=== PATIENT | male | born 1945 | race Caucasian/White ===

== ENCOUNTER → 2016-09-02 | Outpatient (CLI) | payer BC ==
[2016-09-02 12:44] LABS: BASO % 0.2 %; BASO ABS # 0.01 K/uL (0-0.2); COMPLETE YES; EOS % 4.7 %; HEMATOCRIT 44.7 % (42-52); IG% 0.2 %; LYMPH % 35.5 %; LYMPH ABS # 2.12 K/uL (1.2-3.4); MEAN CELL VOLUME 92.2 fL (80-100); MEAN CORPUSCULAR HEMOGLOBIN 32.2 pg (25-34); MEAN CORPUSCULAR HGB CONC 34.9 g/dl (32-36); MONO % 8.2 %; NEUT % 51.2 %; PLATELET COUNT 202 K/uL (130-400); RED BLOOD COUNT 4.85 M/uL (4.7-6.1); WHITE BLOOD COUNT 5.98 K/uL (4.8-10.8)
[2016-09-02 14:16] LABS: ALKALINE PHOSPHATASE 73 U/L (45-117); ALT/SGPT 31 U/L (12-78); AST/SGOT 17 U/L (15-37); BLOOD UREA NITROGEN 9 mg/dl (7-18); BUN/CREATININE RATIO 10.8 (10-20); CALCIUM 9.1 mg/dl (8.5-10.1); CARBON DIOXIDE 25 mmol/L (21-32); CHLORIDE 107 mmol/L (98-107); CREATININE 0.87 mg/dl (0.60-1.40); GLUCOSE 170 mg/dl (70-99); POTASSIUM 4.2 mmol/L (3.5-5.1); SODIUM 141 mmol/L (136-145)
[2016-09-02 14:30] LABS: ALB/GLOB RATIO 1.1 (0.9-2); CHOLESTEROL 238 mg/dl (0-200); CHOLESTEROL/HDL RATIO 6.1; HDL CHOLESTEROL 39 mg/dl; LDL CHOLESTEROL CALCULATED 153 mg/dl; PROSTATE SPECIFIC ANTIGEN 0.432 ng/ml (0.000-4.000); TRIGLYCERIDES 230 mg/dl (0-150); VERY LOW DENSITY LIPOPROT CALC 46 mg/dl
== END | disposition home or self-care (01) ==
LOC: C.LABPBG 08:21
PROVIDERS: ATTEND Neuromusculoskeletal Medicine & OMM
DX: Z00.00 Encounter for general adult medical examination without abnormal findings (principal)

== ENCOUNTER → 2016-10-02 | Outpatient (CLI) | payer BC ==
[2016-10-03 05:33] LABS: ESTIMATED AVERAGE GLUCOSE 200 mg/dl; HA1C FLAG Normal (Normal)
== END | disposition home or self-care (01) ==
LOC: C.LABPBG 11:29
PROVIDERS: ATTEND Neuromusculoskeletal Medicine & OMM
DX: R73.9 Hyperglycemia, unspecified (principal)

== ENCOUNTER → 2017-02-09 | Outpatient (CLI) | payer BC ==
[2017-02-09 12:20] LABS: ESTIMATED AVERAGE GLUCOSE 137 mg/dl; HA1C FLAG Normal (Normal)
[2017-02-09 12:25] LABS: ALT/SGPT 17 U/L (12-78); AST/SGOT 13 U/L (15-37); BLOOD UREA NITROGEN 12 mg/dl (7-18); BUN/CREATININE RATIO 16.6 (10-20); CALCIUM 8.9 mg/dl (8.5-10.1); CARBON DIOXIDE 24 mmol/L (21-32); CHLORIDE 110 mmol/L (98-107); CREATININE 0.71 mg/dl (0.60-1.40); GLUCOSE 111 mg/dl (70-99); SODIUM 142 mmol/L (136-145)
[2017-02-09 12:27] LABS: ALB/GLOB RATIO 1.1 (0.9-2); ALKALINE PHOSPHATASE 61 U/L (45-117); CHOLESTEROL 218 mg/dl (0-200); CHOLESTEROL/HDL RATIO 6.8; HDL CHOLESTEROL 32 mg/dl; LDL CHOLESTEROL CALCULATED 136 mg/dl; TRIGLYCERIDES 249 mg/dl (0-150); VERY LOW DENSITY LIPOPROT CALC 50 mg/dl
== END | disposition home or self-care (01) ==
LOC: C.LABPBG 07:29
PROVIDERS: ATTEND Neuromusculoskeletal Medicine & OMM
DX: Z00.00 Encounter for general adult medical examination without abnormal findings (principal); E78.5 Hyperlipidemia, unspecified; E11.9 Type 2 diabetes mellitus without complications

== ENCOUNTER → 2017-08-06 | Outpatient (CLI) | payer BC ==
[2017-08-06 14:05] LABS: ALBUMIN 3.6 gm/dl (3.4-5.0); ALT/SGPT 22 U/L (12-78); AST/SGOT 15 U/L (15-37); BLOOD UREA NITROGEN 16 mg/dl (7-18); CARBON DIOXIDE 27 mmol/L (21-32); CHOLESTEROL 228 mg/dl (0-200); CREATININE 0.91 mg/dl (0.60-1.40); GLUCOSE 129 mg/dl (70-99); POTASSIUM 4.4 mmol/L (3.5-5.1); SODIUM 139 mmol/L (136-145)
[2017-08-06 14:15] LABS: ALKALINE PHOSPHATASE 55 U/L (45-117); LDL CHOLESTEROL CALCULATED 167 mg/dl; TOTAL PROTEIN 7.1 gm/dl (6.4-8.2)
[2017-08-07 07:30] LABS: HEMOGLOBIN A1C 6.4 % (4.5-5.6)
== END | disposition home or self-care (01) ==
LOC: C.LABPBG 09:09
PROVIDERS: ATTEND Family Medicine
DX: I10 Essential (primary) hypertension (principal); E78.5 Hyperlipidemia, unspecified; E11.9 Type 2 diabetes mellitus without complications

== ENCOUNTER 2020-06-12 16:12 | Observation (INO) ==
[~2020-06-12 16:12] MED LIST: SODIUM CHLORIDE 0.9% 1000ML 1,000 ML IV SCH
[2020-06-12] MEDS ORDERED: OPTIRAY 320 125ml IV ONE (16:27)
--- NOTE | 2020-06-12 16:32 | CT Scan Report ---
CT head/brain wo con CLINICAL HISTORY: 75 years-old Male with Stroke Like Symptoms. Acute strokelike symptoms TECHNIQUE: Multiple axial CT images of the head were obtained without contrast. A dose lowering tech nique was utilized adhering to the principles of ALARA. COMPARISON: None. FINDINGS: No acute intracranial hemorrhage, midline shift, intracranial mass, hydrocephalus, territorial ischem ia or abnormal extra-axial collection. Age-related involutional changes. The calvarium is intact. Tiny air-fluid level of the right sphenoid sinus. Mastoid air cells are chava ar. Unremarkable soft tissues. Prior bilateral lens replacement. IMPRESSION: No acute intracranial abnormality. ACT 112: Negative or not required by law. The above report was generated using voice recognition software. It may contain grammatical, syntax o r spelling errors. Electronically signed by: Jamie Smith M.D. 06/12/2020 4:31 PM
--- NOTE | 2020-06-12 16:50 | Emergency Department Note ---
Impression & Plan Amnesia, global, transient, Acute neck pain ED Provider Note NAME: MARGARET OTERO AGE: 75 SEX: M : 1945 ARRIVES VIA: Ambulance INFORMANT: Patient, the prehospital personnel, the patient's significant other ED PROVIDER(S): Emmanuel Campbell DO CHIEF COMPLAINT: Strokelike symptoms HPI: The patient is a 75-year-old male who presented to the emergency department for an evaluation of altered mental status. According to the patient's significant other they had gone shopping in the morning. When they returned from shopping the patient went outside to break up ice and shoveled the driveway. The patient was last seen well between 130 and 2:00 this afternoon. Apparently the patient came back inside and was very confused asking repetitive questions. The patient's significant other became concerned about a stroke and called 911. The patient arrived at the emergency department via ambulance. The patient self complains of headache which began while he was in the emergency department. He also complains of neck pain and back pain. The patient denies having any abdominal pain. He denies having any chest pain or difficulty breathing. The patient is confused and appears to be asking repetitive questions regarding why he is in the emergency department and what exactly happened. He has significant retrograde amnesia to the event and does not remember being at home today. The patient denies having any recent falls. The patient has not had similar symptoms in the past according to him and his significant other. The patient did have an episode of emesis prior to arrival. He was treated with Zofran by the prehospital personnel prior to arrival. ROS: See above HPI for pertinent positives & negatives. A total of 10 systems reviewed and were otherwise negative. PAST MEDICAL HISTORY: See Below PAST SURGICAL HISTORY: See Below FAMILY HISTORY: See Below SOCIAL HISTORY: See Below HOME MEDICATIONS: See Below ALLERGIES: See Below VITALS: See Below PHYSICAL EXAMINATION: GENERAL: Patient is awake alert in no acute distress patient is resting comfortably and showing no signs of anxiety EYES: The conjunctivae are clear. The pupils are round and reactive. EARS, NOSE, MOUTH AND THROAT: The nose is without any evidence of any deformity. NECK: The neck is nontender and supple. RESPIRATORY: Normal respiratory effort is noted there is no evidence of wheezing rhonchi or rales CARDIOVASCULAR: Regular rate and rhythm noted there no murmurs rubs or gallops normal S1 normal S2. GASTROINTESTINAL: The abdomen is soft. Abdomen is nontender. BACK: No midline tenderness was elicited. There is tenderness over the right parascapular region as well as the right trapezius. Range of motion appears intact. MUSCULOSKELETAL/EXTREMITIES: There is no evidence of gross deformity full range of motion is noted in the hips and shoulders. SKIN: There is no obvious evidence of any rash. There are no petechiae, pallor or cyanosis noted. NEUROLOGIC: Patient is awake alert and oriented to person place but not time or situation. The patient continues to ask repetitive questioning about why he is in the emergency department. Patellar tendon reflexes are 2+ bilaterally. There is no drift or facial droop noted. Patient is able to hold each leg off the bed for greater than 5 seconds. MEDICAL DECISION MAKING: The patient is a 75-year-old male who presented to the emergency department for confusion. The patient appears to have some degree of amnesia. He was made a stroke alert prior to arrival. The patient has no focal neurologic deficits but did have an NIH score of 2 because of his confusion. His confusion appears to be more consistent with an amnesia. He was shoveling his driveway and may have been exerting himself. It is also unclear if the patient suffered a fall and may be presenting with concussion symptoms. I discussed the patient's laboratory and radiographic studies with him. He was reevaluated multiple times. The patient continues to have a significant degree of amnesia to the event. For this reason I discussed his case with the on-call [facility] hospitalist group. The patient may require further evaluation for transient global amnesia. The patient was agreeable to evaluation. Triage Nursing notes reviewed. Prior medical records reviewed Vital Signs: reviewed and remarkable for elevated blood pressure. Differential diagnosis: Infection, dehydration, metabolic abnormality, hypo/hyperglycemia, electrolyte disturbance, anemia, hypoxia, cardiac sources, intracerebral event, toxicologic, neurologic, as well as other pathologies. ER treatment provided: See below Diagnostics interpreted by me: ECG: EKG was obtained in the emergency department. My interpretation is normal sinus rhythm at 68 bpm. There was no ectopy. High lateral Q waves and T wave flattening in the inferior leads were noted. There is no previous EKG available for comparison. Cardiac Monitoring: An order was placed for continuous cardiac monitoring. The monitor shows a rate of 65 bpm with sinus rhythm. Laboratory studies: As stated above and show below. Imaging studies: See below Consultation(s): 1640: I discussed this case with the [place] telestroke neurologist, Dr. Rosenberg. I discussed this case with Dr. Rodriguez who is on-call for the [facility] hospitalist group. Past Med/Surg History Medical History Benign essential hypertension GERD (gastroesophageal reflux disease) MILD, DIET CONTROLLED History of basal cell carcinoma (BCC) of skin (11/2019) Hyperlipidemia Nausea and vomiting after administration of anesthetic agent T2DM (type 2 diabetes mellitus) Surgical History History of cholecystectomy (1993) History of right cataract surgery History of tonsillectomy History of total knee replacement (05/2012) LEFT S/P cataract extraction (09/26/18) L eye S/P left knee arthroscopy (2018) Family History Aunt Ovarian cancer Breast cancer Mother Hypertension Denies family history of Prostate cancer Myocardial infarction Colorectal cancer Social History Smoking Status: Never smoker Cigarettes Per Day: QUIT 30 YEARS AGO, HX OF USE X30 YEARS; Second Hand Exposure: No; Hx Alcohol Use: No Hx Substance Use: No Preferred Language: Kazakh Communication Ability: Effective Switchman Required: No Beliefs That Will Affect Care: None Current Living Situation: Spouse current occupational status: retired Feels Safe at Home: Yes caffeine: Yes during the past year weight has: remained stable Dental Care, Regularly: Yes Physical Activity Frequency: Daily Seatbelt Use: other Sunscreen Use: No Assistive Devices: None Allergies Allergies Allergy/AdvReac Type Severity Reaction Status Date / Time No Known Allergies Allergy Verified 06/12/20 16:26 Home Meds Home Medications Medication Instructions Recorded Confirmed ibuprofen 200 mg capsule 200 mg PO DIRECTED PRN cap 02/01/19 06/12/20 Previous Rx's Medication Instructions Recorded metformin 500 mg tablet 500 mg PO BID #180 tab 09/07/19 lisinopril 10 mg tablet 10 mg PO DAILY #90 tab 05/29/20 Results & Data (ED) Vital Signs Vital Signs - 24 hr 06/12/20 16:26 06/12/20 16:33 06/12/20 16:40 Temperature 36.5 C Temperature Source Oral Pulse Rate 71 71 65 Pulse Rate [Apical] Pulse Rate from SpO2 Sensor 70 63 Respiratory Rate 19 23 17 Respiratory Effort / Characteristics Non-Labored Respiratory Depth Normal Blood Pressure 160/78 H 160/78 H Blood Pressure [Left Arm] Blood Pressure Mean 105 105 Blood Pressure Mean [Left Arm] Blood Pressure Position Sitting Pulse Oximetry 97 97 98 Oxygen Delivery Method Room Air Sepsis Recent Fever Within 48 Hours No Sepsis New/Unexplained Change in Mental Status No Sepsis Action Taken by Nursing No Action Required 06/12/20 16:50 06/12/20 17:00 06/12/20 17:10 Temperature Temperature Source Pulse Rate 61 59 L 61 Pulse Rate [Apical] Pulse Rate from SpO2 Sensor 62 59 L 62 Respiratory Rate 20 14 23 Respiratory Effort / Characteristics Respiratory Depth Blood Pressure 146/73 H Blood Pressure [Left Arm] Blood Pressure Mean 97 Blood Pressure Mean [Left Arm] Blood Pressure Position Pulse Oximetry 98 96 95 Oxygen Delivery Method Sepsis Recent Fever Within 48 Hours Sepsis New/Unexplained Change in Mental Status Sepsis Action Taken by Nursing 06/12/20 17:20 06/12/20 17:36 Temperature Temperature Source Pulse Rate 57 L Pulse Rate [Apical] 60 Pulse Rate from SpO2 Sensor 56 L Respiratory Rate 15 Respiratory Effort / Characteristics Respiratory Depth Blood Pressure Blood Pressure [Left Arm] 156/75 H Blood Pressure Mean Blood Pressure Mean [Left Arm] 102 Blood Pressure Position Pulse Oximetry 97 97 Oxygen Delivery Method Room Air Sepsis Recent Fever Within 48 Hours Sepsis New/Unexplained Change in Mental Status Sepsis Action Taken by [facility] Medications Current Medication List: was personally reviewed by me Laboratory Data Attestation: I reviewed the patient's lab results. Result diagrams: 06/12/20 16:37 06/12/20 16:37 Lab Results 06/12/20 06/12/20 06/12/20 Range/Units 16:37 16:37 16:37 WBC 12.49 H (4.8-10.8) K/uL RBC 4.30 L (4.7-6.1) M/uL Hgb 13.6 L (14.0-18.0) g/dL Hct 39.7 L (42-52) % MCV 92.3 (80-100) fL MCH 31.6 (25-34) pg MCHC 34.3 (32-36) g/dL RDW Std Deviation 47.5 H (36.4-46.3) fL RDW Coeff of Jude 14.1 (11.5-14.5) % Plt Count 216 (130-400) K/uL MPV 11.0 H (7.4-10.4) fL Immature Gran % (Auto) 0.6 % Neut % (Auto) 78.4 % Lymph % (Auto) 13.1 % [place] % (Auto) 6.9 % Eos % (Auto) 0.9 % Baso % (Auto) 0.1 % Neut # (Auto) 9.81 H (1.4-6.5) K/uL Lymph # (Auto) 1.63 (1.2-3.4) K/uL [place] # (Auto) 0.86 H (0.11-0.59) K/uL Eos # (Auto) 0.11 (0-0.5) K/uL Baso # (Auto) 0.01 (0-0.2) K/uL Immature Gran # (Auto) 0.07 H (0.00-0.02) K/uL PT 11.7 (9.0-12.0) Seconds INR 1.1 (0.9-1.1) APTT 26.3 (21.0-31.0) Seconds PTT Ratio 0.9 Sodium 138 (136-145) mmol/L Potassium 4.1 (3.5-5.1) mmol/L Chloride 106 (98-107) mmol/L Carbon Dioxide 23 (21-32) mmol/L Anion Gap 8.0 (3-11) BUN 14 (7-18) mg/dl Creatinine 1.09 (0.6-1.4) mg/dl Est Cr Clr Drug Dosing Not Reportable Est GFR ( Amer) 77.1 Est GFR (Non-Af Amer) 66.5 BUN/Creatinine Ratio 12.8 (10-20) Glucose 158 H (70-99) mg/dl Calcium 9.3 (8.5-10.1) mg/dl Magnesium 1.5 L (1.8-2.4) mg/dl Total Bilirubin 0.5 (0.2-1) mg/dl AST 8 L (15-37) U/L ALT 18 (12-78) U/L Alkaline Phosphatase 56 (45-117) U/L Troponin I < 0.015 (0-0.045) ng/ml Total Protein 6.6 (6.4-8.2) gm/dl Albumin 3.4 (3.4-5.0) gm/dl Globulin 3.2 (2.5-4.0) gm/dl Albumin/Globulin Ratio 1.1 (0.9-2) COVID-19 Eval Order SARS-CoV-2, RNA, NAAT (NEGATIVE) 06/12/20 06/12/20 Range/Units 16:43 16:43 WBC (4.8-10.8) K/uL RBC (4.7-6.1) M/uL Hgb (14.0-18.0) g/dL Hct (42-52) % MCV (80-100) fL MCH (25-34) pg MCHC (32-36) g/dL RDW Std Deviation (36.4-46.3) fL RDW Coeff of Jude (11.5-14.5) % Plt Count (130-400) K/uL MPV (7.4-10.4) fL Immature Gran % (Auto) % Neut % (Auto) % Lymph % (Auto) % [place] % (Auto) % Eos % (Auto) % Baso % (Auto) % Neut # (Auto) (1.4-6.5) K/uL Lymph # (Auto) (1.2-3.4) K/uL [place] # (Auto) (0.11-0.59) K/uL Eos # (Auto) (0-0.5) K/uL Baso # (Auto) (0-0.2) K/uL Immature Gran # (Auto) (0.00-0.02) K/uL PT (9.0-12.0) Seconds INR (0.9-1.1) APTT (21.0-31.0) Seconds PTT Ratio Sodium (136-145) mmol/L Potassium (3.5-5.1) mmol/L Chloride (98-107) mmol/L Carbon Dioxide (21-32) mmol/L Anion Gap (3-11) BUN (7-18) mg/dl Creatinine (0.6-1.4) mg/dl Est Cr Clr Drug Dosing Est GFR ( Amer) Est GFR (Non-Af Amer) BUN/Creatinine Ratio (10-20) Glucose (70-99) mg/dl Calcium (8.5-10.1) mg/dl Magnesium (1.8-2.4) mg/dl Total Bilirubin (0.2-1) mg/dl AST (15-37) U/L ALT (12-78) U/L Alkaline Phosphatase (45-117) U/L Troponin I (0-0.045) ng/ml Total Protein (6.4-8.2) gm/dl Albumin (3.4-5.0) gm/dl Globulin (2.5-4.0) gm/dl Albumin/Globulin Ratio (0.9-2) COVID-19 Eval Order Covid19 [facility] SARS-CoV-2, RNA, NAAT NEGATIVE (NEGATIVE) Administered Medications Sodium Chloride (Nss 1000ml) 1,000 mls @ 50 mls/hr IV .Q20H ARLYN Stop: 07/12/20 15:59 Last Admin: 06/12/20 20:34 Dose: 50 mls/hr Documented by: [id number] Miscellaneous (Patient's Weight Needed) 1 ea N/A Q2H ARLYN Stop: 07/12/20 20:29 Last Admin: 06/12/20 21:34 Dose: 1 ea Documented by: [id number] Ondansetron HCl (Ondansetron Inj 2 Mg/Ml 2 Ml Vial) 4 mg IV Q4H PRN PRN Reason: Nausea Stop: 07/12/20 20:28 Last Admin: 06/12/20 21:04 Dose: 4 mg Documented by: [id number] Discontinued Medications Aspirin (Aspirin 81 Mg Chew) 324 mg PO NOW ONE Stop: 06/12/20 19:33 Last Admin: 06/12/20 20:36 Dose: 324 mg Documented by: [id number] Gadobutrol (Gadobutrol 65ml Vial) 9.5 ml IV ONCE ONE Stop: 06/12/20 22:06 Last Admin: 06/12/20 22:06 Dose: 9.5 ml Documented by: [id number] Magnesium Sulfate/Dextrose (Magnesium Sulfate / D5w) 1 gm in 100 mls @ 100 mls/hr IV Q1H ARLYN Stop: 06/12/20 19:09 Last Infusion: 06/12/20 20:08 Dose: 0 mls/hr Documented by: [id number] Admin: 06/12/20 18:34 Dose: 100 mls/hr Documented by: [id number] Infusion: 06/12/20 18:34 Dose: 0 mls/hr Documented by: [id number] Admin: 06/12/20 17:33 Dose: 100 mls/hr Documented by: [id number] Ioversol (Optiray 320 125ml) 118 ml IV ONCE ONE Stop: 06/12/20 16:28 Last Admin: 06/12/20 16:28 Dose: 118 ml Documented by: [id number] Lorazepam (Lorazepam 0.5 Mg Tab) 0.5 mg PO NOW STA Stop: 06/12/20 20:29 Last Admin: 06/12/20 20:37 Dose: 0.5 mg Documented by: [id number] Imaging Data Radiologist's Impression: [facility], [id number] CT Scan Report Patient: MARGARET OTERO Date: 06/12/20MR#: [id number]: [address]Acct ID:[id number]: [address] [facility] Zip: [place], [place] [address]Hzw: 75Location: EDSex: MRoom/Bed:Att Phy:Diagnosis: CONFUSION, BACK PAIN, STROKE ALERTPri Phy: Celina Ramos, DOService Date: 06/12/20Fam Phy:Interpreting Phy: Jeet Pastor MDAdmit Phy: Ordering Phy: Emmanuel Campbell DO cc: ~ CT ANGIOGRAM OF THE BRAIN; CT ANGIOGRAM OF THE NECK CLINICAL HISTORY: Change in mental status. Stroke like symptoms. COMPARISON STUDY: Unenhanced CT of the brain performed concurrently on 06/12/2020. TECHNIQUE: Following the IV administration of 118 of Optiray 320, CT angiogram of the head and neck was performed from the aortic arch to the vertex. Images are reviewed in the axial, sagittal, and coronal planes. 3-D MIPS images are created and assessed. IV contrast was administered without complication. All measurements were calculated based on NASCET criteria. A dose lowering technique was utilized adhering to the principles of ALARA. CT DOSE: 1481.94 mGy.cm FINDINGS: Brain parenchyma: There is age-related involutional change noting mild subcortical and periventricular microangiopathic disease. There is no hemorrhag e, mass effect, or evidence of acute territorial ischemia by CT criteria. There is no evidence of enhancing mass lesion on the angiogram phase images. The ventricles, sulci, and cisterns are prominent secondary to involutional change. Ford-white matter differentiation is preserved. No extra-axial fluid collection is seen. Thoracic aorta: Visualized portions of the thoracic aorta are normal in caliber. The aortic arch demonstrates standard 3-vessel anatomy. Right carotid arterial system: The right common carotid artery is widely patent, as are the right internal and external carotid arteries. Left carotid arterial system: The left common carotid artery is widely patent, as are the left internal and external carotid arteries. Mild plaque is seen in the carotid bulb. Vertebral arteries: The vertebral arteries are widely patent bilaterally and codominant in the neck. Subclavian arteries: Widely patent bilaterally. Intracranial vasculature: There is atherosclerotic calcification of the cavernous carotid and vertebral arteries. The internal carotid arteries are patent at the skull base, as are the anterior and middle cerebral arteries bilaterally. The vertebrobasilar system and posterior cerebral arteries are widely patent. The left vertebral artery is dominant. There is no aneurysm, high-grade stenosis, or focal vessel cut off seen throughout the intracranial circulation. Jugular veins: Patent bilaterally. Dural sinuses: Patent. Lung apices: Partially visualized upper lobe lung parenchyma appears clear. Soft tissues: The visualized pharyngeal soft tissues are normal in appearance noting angiographic phase technique. The oropharyngeal airway appears widely patent. There is a 6.5 x 5.5 x 4.5 cm mass of the left lobe of the thyroid gland. This causes mass effect and rightward deviation of the trachea. The salivary glands are normal in appearance. No cervical lymphadenopathy is seen. Skeletal structures: The skeletal structures are osteopenic. The calvarium appears intact. The cervical spine is maintained noting multilevel spondylosis. No lytic or blastic lesion is seen. Orbits: The bony orbits are intact. Orbital contents are normal as visualized noting bilateral ocular lens implants. Sinuses and mastoids: There is mild mucosal thickening and secretions within the right sphenoid sinus. Trace because of thickening seen within the maxillary antra. The mastoid air cells are well pneumatized. IMPRESSION: 1. There is no hemorrhage, mass effect, or evidence of acute territorial ischemia by CT criteria noting angiographic phase technique. 2. Unremarkable CT angiogram of the brain. 3. Unremarkable CT head from the neck. 4. There is a 6.5 cm mass of the left lobe of the thyroid gland. Follow-up with a nonemergent thyroid ultrasound is recommended for further assessment. ACT 112: Negative or not required by law. Electronically signed by: Jeet Pastor M.D. 06/12/2020 4:57 PM Dictated: 06/12/20 1638Transcribed: 06/12/20 1648 [facility], [id number] CT Scan Report Patient: MARGARET OTERO Date: 06/12/20MR#: [id number]: [address]Acct ID:[id number]: Date: 1945[facility] Zip: [place], [place] [address]Gps: 75Location: EDSex: MRoom/Bed:Att Phy:Diagnosis: CONFUSION, BACK PAIN, STROKE ALERTPri Phy: Celina Ramos, DOService Date: 06/12/20Fam Phy:Interpreting Phy: Kenny SmithAdmit Phy: Ordering Phy: Emmanuel Campbell DO cc: ~ CT head/brain wo con CLINICAL HISTORY: 75 years-old Male with Stroke Like Symptoms. Acute strokelike symptoms TECHNIQUE: Multiple axial CT images of the head were obtained without contrast. A dose lowering technique was utilized adhering to the principles of ALARA. COMPARISON: None. FINDINGS: No acute intracranial hemorrhage, midline shift, intracranial mass, hydrocephalus, territorial ischemia or abnormal extra-axial collection. Age- related involutional changes. The calvarium is intact. Tiny air-fluid level of the right sphenoid sinus. Mastoid air cells are clear. Unremarkable soft tissues. Prior bilateral lens replacement. IMPRESSION: No acute intracranial abnormality. ACT 112: Negative or not required by law. The above report was generated using voice recognition software. It may contain grammatical, syntax or spelling errors. Electronically signed by: Jamie Smith M.D. 06/12/2020 4:31 PM Dictated: 06/12/201628Transcribed: 06/12/201628 Patient: MARGARET OTERO Date: 06/12/20#: [id number]: [address]Acct ID:[id number]: [address] Zip: [place], [place] [address]Ert: 75Location: EDSex: MRoom/Bed:Att Phy:Diagnosis: CONFUSION, BACK PAIN, STROKE ALERTPri Phy: Celina Ramos, DOService Date: 06/12/20Fam Phy:Interpreting Phy: Kenny SmithAdmgunner Phy: Ordering Phy: Emmanuel Campbell DO cc: ~ CT angio chest PE protocol HISTORY: 75 years-old Male with PE. Acute confusion with strokelike symptoms and acute shortness of breath TECHNIQUE: Multiple CTA images of the chest were obtained after the intravenous administration of 118 ml Optiray 320. Coronal and sagittal MIPS were obtained from the axial data set and were submitted for review. All measurements were obtained according to NASCET criteria. A dose lowering technique was utilized adhering to the principles of ALARA. COMPARISON: None. FINDINGS: CTA: The heart is upper limits of normal in size. No pericardial effusion. No thoracic aortic aneurysm or dissection. Patency of the imaged great vessels. Pulmonary artery is opacified to the level the subsegmental branches and demonstrates no filling defects to suggest thromboembolic disease. CT CHEST: Thyroid goiter, with enlargement of the left thyroid lobe. No adenopathy. No pneumothorax, pleural effusion or overt pulmonary edema. Mild bilateral bronchial wall thickening. Mild bibasilar groundglass densities suggest atelectasis. There are no suspicious pulmonary nodules or masses. No airspace consolidation typical for pneumonia. Central airways are patent. Tiny hiatal hernia. Cholecystectomy. Unremarkable soft tissues. Degenerative changes of the shoulders and spine. No acute fracture. IMPRESSION: 1. Unremarkable CTA of the chest without evidence of pulmonary emboli. 2. Mild bibasilar atelectasis without pleural effusion, adenopathy or airspace consolidation to suggest pneumonia. 3. Thyroid goiter. ACT 112: Negative or not required by law. The above report was generated using voice recognition software. It may contain grammatical, syntax or spelling errors. Electronically signed by: Jamie Smith M.D. 06/12/2020 4:50 PM Dictated: 06/12/20 1631Transcribed: 06/12/20 1631 Blood Pressure Blood Pressure Findings: Elevated blood pressure Blood Pressure Disposition: further management by hospitalist Discharge Plan Visit Data Chief Complaint: Stroke Alert Stated Complaint: CONFUSION, BACK PAIN, STROKE ALERT ED Provider: Emmanuel Campbell Discharge Problem: Amnesia, global, transient, Acute neck pain Patient Disposition: Admitted As Inpatient Condition: Good Discharge Instructions Interventions: ED Discharge Assessment Last Done: 06/12/20 19:07
[2020-06-12 16:51] LABS: Basophils # (auto) 0.01 K/uL (0-0.2); Basophils % (auto) 0.1 %; Eosinophils # (auto) 0.11 K/uL (0-0.5); Eosinophils % (auto) 0.9 %; Hematocrit (blood only) 39.7 % (42-52); Hemoglobin 13.6 g/dL (14.0-18.0); Immature Granulocytes # (auto) 0.07 K/uL (0.00-0.02); Immature Granulocytes % (auto) 0.6 %; Lymphocytes # (auto) 1.63 K/uL (1.2-3.4); Lymphocytes % (auto) 13.1 %; Mean Corpuscular Hemoglobin 31.6 pg (25-34); Mean Corpuscular Hgb Conc 34.3 g/dL (32-36); Mean Corpuscular Volume 92.3 fL (80-100); Monocytes # (auto) 0.86 K/uL (0.11-0.59); Monocytes % (auto) 6.9 %; Neutrophils # (auto) 9.81 K/uL (1.4-6.5); Neutrophils % (auto) 78.4 %; Platelet Count 216 K/uL (130-400); RDW Coefficient of Variation 14.1 % (11.5-14.5); RDW Standard Deviation 47.5 fL (36.4-46.3); White Blood Count 12.49 K/uL (4.8-10.8)
--- NOTE | 2020-06-12 16:52 | CT Scan Report ---
CT angio chest PE protocol HISTORY: 75 years-old Male with PE. Acute confusion with strokelike symptoms and acute shortness of breath TECHNIQUE: Multiple CTA images of the chest were obtained after the intravenous administration of 118 ml Optiray 320. Coronal and sagittal MIPS were obtained from the axial data set and were submitted for review. All measurements were obtained according to NASCET criteria. A dose lowering technique w as utilized adhering to the principles of ALARA. COMPARISON: None. FINDINGS: CTA: The heart is upper limits of normal in size. No pericardial effusion. No thoracic aortic aneurysm or dissection. Patency of the imaged great vessels. Pulmonary artery is opacified to the level the subse gmental branches and demonstrates no filling defects to suggest thromboembolic disease. CT CHEST: Thyroid goiter, with enlargement of the left thyroid lobe. No adenopathy. No pneumothorax, pleural ef fusion or overt pulmonary edema. Mild bilateral bronchial wall thickening. Mild bibasilar groundglass densities suggest atelectasis. There are no suspicious pulmonary nodules or masses. No airspace cons olidation typical for pneumonia. Central airways are patent. Tiny hiatal hernia. Cholecystectomy. Unremarkable soft tissues. Degenerative changes of the shoulders and spine. No acute fracture. IMPRESSION: 1. Unremarkable CTA of the chest without evidence of pulmonary emboli. 2. Mild bibasilar atelectasis without pleural effusion, adenopathy or airspace consolidation to sugge st pneumonia. 3. Thyroid goiter. ACT 112: Negative or not required by law. The above report was generated using voice recognition software. It may contain grammatical, syntax o r spelling errors. Electronically signed by: Jamie Smith M.D. 06/12/2020 4:50 PM
--- NOTE | 2020-06-12 16:58 | CT Scan Report ---
CT ANGIOGRAM OF THE BRAIN; CT ANGIOGRAM OF THE NECK CLINICAL HISTORY: Change in mental status. Stroke like symptoms. COMPARISON STUDY: Unenhanced CT of the brain performed concurrently on 06/12/2020. TECHNIQUE: Following the IV administration of 118 of Optiray 320, CT angiogram of the head and neck w as performed from the aortic arch to the vertex. Images are reviewed in the axial, sagittal, and eva nal planes. 3-D MIPS images are created and assessed. IV contrast was administered without complicati on. All measurements were calculated based on NASCET criteria. A dose lowering technique was utilize d adhering to the principles of ALARA. CT DOSE: 1481.94 mGy.cm FINDINGS: Brain parenchyma: There is age-related involutional change noting mild subcortical and periventricula r microangiopathic disease. There is no hemorrhage, mass effect, or evidence of acute territorial isc hemia by CT criteria. There is no evidence of enhancing mass lesion on the angiogram phase images. Th e ventricles, sulci, and cisterns are prominent secondary to involutional change. Ford-white matter d ifferentiation is preserved. No extra-axial fluid collection is seen. Thoracic aorta: Visualized portions of the thoracic aorta are normal in caliber. The aortic arch demo nstrates standard 3-vessel anatomy. Right carotid arterial system: The right common carotid artery is widely patent, as are the right int ernal and external carotid arteries. Left carotid arterial system: The left common carotid artery is widely patent, as are the left internist medical doctor md al and external carotid arteries. Mild plaque is seen in the carotid bulb. Vertebral arteries: The vertebral arteries are widely patent bilaterally and codominant in the neck. Subclavian arteries: Widely patent bilaterally. Intracranial vasculature: There is atherosclerotic calcification of the cavernous carotid and vertebr al arteries. The internal carotid arteries are patent at the skull base, as are the anterior and midd le cerebral arteries bilaterally. The vertebrobasilar system and posterior cerebral arteries are wide ly patent. The left vertebral artery is dominant. There is no aneurysm, high-grade stenosis, or focal vessel cut off seen throughout the intracranial circulation. Jugular veins: Patent bilaterally. Dural sinuses: Patent. Lung apices: Partially visualized upper lobe lung parenchyma appears clear. Soft tissues: The visualized pharyngeal soft tissues are normal in appearance noting angiographic pha se technique. The oropharyngeal airway appears widely patent. There is a 6.5 x 5.5 x 4.5 cm mass of t he left lobe of the thyroid gland. This causes mass effect and rightward deviation of the trachea. Th e salivary glands are normal in appearance. No cervical lymphadenopathy is seen. Skeletal structures: The skeletal structures are osteopenic. The calvarium appears intact. The cervic al spine is maintained noting multilevel spondylosis. No lytic or blastic lesion is seen. Orbits: The bony orbits are intact. Orbital contents are normal as visualized noting bilateral ocular lens implants. Sinuses and mastoids: There is mild mucosal thickening and secretions within the right sphenoid sinus . Trace because of thickening seen within the maxillary antra. The mastoid air cells are well pneumat ized. IMPRESSION: 1. There is no hemorrhage, mass effect, or evidence of acute territorial ischemia by CT criteria noti ng angiographic phase technique. 2. Unremarkable CT angiogram of the brain. 3. Unremarkable CT head from the neck. 4. There is a 6.5 cm mass of the left lobe of the thyroid gland. Follow-up with a nonemergent thyroid ultrasound is recommended for further assessment. ACT 112: Negative or not required by law. Electronically signed by: Jeet Pastor M.D. 06/12/2020 4:57 PM
[2020-06-12 17:02] LABS: INR 1.1 (0.9-1.1); Partial Thromboplastin Ratio 0.9; Partial Thromboplastin Time 26.3 Seconds (21.0-31.0); Prothrombin Time 11.7 Seconds (9.0-12.0)
[2020-06-12 17:07] LABS: Alanine Aminotransferase 18 U/L (12-78); Albumin Level 3.4 gm/dl (3.4-5.0); Aspartate Aminotransferase 8 U/L (15-37); BUN Creatinine Ratio 12.8 (10-20); Blood Urea Nitrogen 14 mg/dl (7-18); Calcium 9.3 mg/dl (8.5-10.1); Carbon Dioxide 23 mmol/L (21-32); Chloride 106 mmol/L (98-107); Est GFR (African American) 77.1; Est GFR (Non-African American) 66.5; Glucose 158 mg/dl (70-99); Magnesium 1.5 mg/dl (1.8-2.4); Potassium 4.1 mmol/L (3.5-5.1); Sodium 138 mmol/L (136-145)
[2020-06-12 17:12] LABS: Albumin Globulin Ratio 1.1 (0.9-2); Alkaline Phosphatase 56 U/L (45-117); Bilirubin,Total 0.5 mg/dl (0.2-1); Globulin 3.2 gm/dl (2.5-4.0); Total Protein 6.6 gm/dl (6.4-8.2); Troponin I < 0.015 ng/ml (0-0.045)
[2020-06-12] MEDS: MAGNESIUM SULFATE / D5W 1 GM/100 ML BAG IV SCH ×2 (17:33→18:34)
--- NOTE | 2020-06-12 19:00 | History & Physical Report ---
Date of Service June 12, 2020 Assessment & Plan (1) Amnesia memory loss: Transient global amnesia vs. lacunar/basilar stroke vs seizure - unspecified cause at this time- electrolytes normal, pending toxicology screen - CT/CTA - MRI ordered - as patient has not had this happen to him before makes seizure less likely. - Patient has no history or complaints of migraines - Maintain frequent neuro assessment tonight - telemetry to r/o dysrhythmia - Lipid panel in the morning - A1C in morning - Hold antihypertensives (2) Hyperlipidemia: lipid panel in the morning. Patient previously declined statin therapy by his PCP. - Should have another educated discussion with patient prior to discharge and initiate statin therapy if indicated. (3) T2DM (type 2 diabetes mellitus): Metformin on hold - BG q6h cover if >200 - no acute concerns (4) Benign essential hypertension: Resume in morning if maintains maps and no change in neurological status (5) Thyroid nodule greater than or equal to 1 cm in diameter incidentally noted on imaging study: There is a 6.5 cm mass of the left lobe of the thyroid gland. Follow-up with a nonemergent thyroid ultrasound is recommended for further assessment. - This was noted on CTA of the neck. - TSH and T4 pending - no pain with palpation History of Present Illness Primary Care Provider: Celina Ramos, DO 75 YOM with significant medical history of HTN, DM II, HLD (patient declined statin therapy), neck pain/back pain. Was brought to the emergency room today via EMS after called 911 secondary to patient confusion and repetitive speech after he went outside to [facility]. The patient arrived to the EMD and underwent stroke alert protocols. The patient was last known well at 1330 today per ER report and was deemed not a tPA candidate secondary to feeling that this is transient amnesia. The patient does not recall any events from today or awakening this morning. The last person that he remembers seeing today was his nurse who just left the room when I entered. He is unaware of where he is and how he got here. The amnesia is associated with a frontal headache that is right in the center of his forehead and is mild at 2-3/10. He denies any association with other pain, nausea, vomiting, or vertiginous symptoms. Reportedly had one episode of vomitus in the ambulance. Patient underwent CT/CTA of head and neck while in the EMD, NIHSS 2 on my evaluation. MRI ordered. Patient will be admitted for observation for 24 hours, telemetry for dysrhythmia monitoring and frequent neurological assessment. Allergies Allergy/AdvReac Type Severity Reaction Status Date / Time No Known Allergies Allergy Verified 06/12/20 16:26 Home Medications Medication Instructions Recorded Confirmed Type ibuprofen 200 mg capsule 200 mg PO DIRECTED PRN cap 02/01/19 06/12/20 History metformin 500 mg tablet 500 mg PO BID #180 tab 09/07/19 06/12/20 Rx lisinopril 10 mg tablet 10 mg PO DAILY #90 tab 05/29/20 06/12/20 Rx Past Med/Surg History Medical History Benign essential hypertension GERD (gastroesophageal reflux disease) MILD, DIET CONTROLLED History of basal cell carcinoma (BCC) of skin (11/2019) Hyperlipidemia Nausea and vomiting after administration of anesthetic agent T2DM (type 2 diabetes mellitus) Surgical History History of cholecystectomy (1993) History of right cataract surgery History of tonsillectomy History of total knee replacement (05/2012) LEFT S/P cataract extraction (09/26/18) L eye S/P left knee arthroscopy (2018) Family History Aunt Ovarian cancer Breast cancer Mother Hypertension Denies family history of Prostate cancer Myocardial infarction Colorectal cancer Social History Smoking Status: Unknown if ever smoked Cigarettes Per Day: QUIT 30 YEARS AGO, HX OF USE X30 YEARS; Second Hand Exposure: No; Hx Alcohol Use: No Hx Substance Use: No Preferred Language: Northern Irish Communication Ability: Effective Order Processor Required: No Beliefs That Will Affect Care: None Current Living Situation: Spouse current occupational status: retired Feels Safe at Home: Yes caffeine: Yes during the past year weight has: remained stable Dental Care, Regularly: Yes Physical Activity Frequency: Daily Seatbelt Use: other Sunscreen Use: No Assistive Devices: Glasses Review of Systems Review of Systems: REVIEW OF SYSTEMS: Constitutional: No fever, sweats or chills Eyes: No diplopia, no worsening or blurred vision ENT: normal hearing, no trouble swallowing Respiratory: No cough, sputum, dyspnea at rest or on exertion Cardiovascular: No chest pain, tightness or palpitations Abdomen: (+) vomiting x1, No pain, nausea, diarrhea or constipation Musculoskeletal: No joint pain, calf pain, swelling Neurologic: (+) memory loss, headache, No weakness, numbness/tingling, or balance problems Psychiatric: No anxiety or depression Skin: No rash or itch Physical Exam Physical Exam: PHYSICAL EXAM: General: awake, alert, no apparent distress Head: Normocephalic, atraumatic ENT: PERRL, EOMI, no pharyngeal exudate, mucous membranes moist Neuro: AAO x 1 (person), NIHSS 2; speech clear and appropriate, neck midline non-tender; strength intact bilaterally 5/5, sensation intact and equal all extremities, no pronator drift, no ataxia, no dysarthria difficulty with concrete thought processes. Writing normal as well as reading. No recolection of the past week or day, no nystagmus. Chest: equal rise and fall of the chest, no accessory muscle use, no heaves or thirlls, Clear to auscultation, on room air, Cardiac: Regular rate and rhythm, telelmetry reviewed, skin warm dry, cap refill <3 seconds, peripheral pusles +2 no JVD, no murmur, no JVD, no edema GI: NABS x 4 quadrants, soft, nontender to palpation, no rebound, guarding or tenderness : Spontaneously voiding, no pain, no CVA tenderness, Extremities: Normal inspection, no peripheral edema or erythema, calfs nontender to palpation Psych: Normal mood and affect Skin: no rash or erythema Constitutional: WD/WN, vitals as above Eyes: normal visual christianson by confrontation and + anicteric sclerae Neck: normal visual inspection and trachea midline Respiratory: normal respiratory effort, lungs clear to auscultation Cardiovascular: Rate/Rhythm: regular rate and regular rhythm Gastrointestinal (Abdomen): Inspection/Auscultation: abdomen not distended Percussion/Palpation: abdomen soft; abdomen nontender Musculoskeletal: Head/Neck/Chest: normocephalic and head atraumatic Neg for peripheral LE edema, + pedal pulses Skin: no rashes, warm and dry Neurologic: awake; not confused Speech / Cognition: normal speech Psychiatric: Orientation: alert, oriented to person, oriented to place ([facility] or [place]) and cooperative; + not oriented to time (guesses 2020, unsure of month or season) Apperance: not disheveled Eye Contact: good eye contact Speech: normal rate/rhythm/volume of speech Affect: euthymic affect (making jokes) Lymphatic: Exam as done by Jackelyn Rodriguez DO Results & Data Results & Data ([facility]) Vital Signs (Past 12 Hours) Vital Signs Temp Pulse Pulse Resp BP BP Pulse Ox 06/12/20 17:36 60 156/75 H 97 06/12/20 17:20 57 L 15 97 06/12/20 17:10 61 23 95 06/12/20 17:00 59 L 14 146/73 H 96 06/12/20 16:50 61 20 98 06/12/20 16:40 65 17 98 06/12/20 16:33 71 23 160/78 H 97 06/12/20 16:26 36.5 C 71 19 160/78 H 97 Laboratory Results Abnormal lab results 06/12/20 06/12/20 Range/Units 16:37 16:37 WBC 12.49 H (4.8-10.8) K/uL RBC 4.30 L (4.7-6.1) M/uL Hgb 13.6 L (14.0-18.0) g/dL Hct 39.7 L (42-52) % RDW Std Deviation 47.5 H (36.4-46.3) fL MPV 11.0 H (7.4-10.4) fL Neut # (Auto) 9.81 H (1.4-6.5) K/uL [place] # (Auto) 0.86 H (0.11-0.59) K/uL Immature Gran # (Auto) 0.07 H (0.00-0.02) K/uL Glucose 158 H (70-99) mg/dl Magnesium 1.5 L (1.8-2.4) mg/dl AST 8 L (15-37) U/L Diagnostic Findings CT ANGIOGRAM OF THE BRAIN; CT ANGIOGRAM OF THE NECK CLINICAL HISTORY: Change in mental status. Stroke like symptoms. COMPARISON STUDY: Unenhanced CT of the brain performed concurrently on 06/12/2020. TECHNIQUE: Following the IV administration of 118 of Optiray 320, CT angiogram of the head and neck was performed from the aortic arch to the vertex. Images are reviewed in the axial, sagittal, and coronal planes. 3-D MIPS images are created and assessed. IV contrast was administered without complication. All measurements were calculated based on NASCET criteria. A dose lowering technique was utilized adhering to the principles of ALARA. CT DOSE: 1481.94 mGy.cm FINDINGS: Brain parenchyma: There is age-related involutional change noting mild subcortical and periventricular microangiopathic disease. There is no hemorrhage, mass effect, or evidence of acute territorial ischemia by CT criteria. There is no evidence of enhancing mass lesion on the angiogram phase images. The ventricles, sulci, and cisterns are prominent secondary to involutional change. Ford-white matter differentiation is preserved. No extra- axial fluid collection is seen. Thoracic aorta: Visualized portions of the thoracic aorta are normal in caliber. The aortic arch demonstrates standard 3-vessel anatomy. Right carotid arterial system: The right common carotid artery is widely patent, as are the right internal and external carotid arteries. Left carotid arterial system: The left common carotid artery is widely patent, as are the left internal and external carotid arteries. Mild plaque is seen in the carotid bulb. Vertebral arteries: The vertebral arteries are widely patent bilaterally and codominant in the neck. Subclavian arteries: Widely patent bilaterally. Intracranial vasculature: There is atherosclerotic calcification of the cavernous carotid and vertebral arteries. The internal carotid arteries are patent at the skull base, as are the anterior and middle cerebral arteries bilaterally. The vertebrobasilar system and posterior cerebral arteries are widely patent. The left vertebral artery is dominant. There is no aneurysm, high-grade stenosis, or focal vessel cut off seen throughout the intracranial circulation. Jugular veins: Patent bilaterally. Dural sinuses: Patent. Lung apices: Partially visualized upper lobe lung parenchyma appears clear. Soft tissues: The visualized pharyngeal soft tissues are normal in appearance noting angiographic phase technique. The oropharyngeal airway appears widely patent. There is a 6.5 x 5.5 x 4.5 cm mass of the left lobe of the thyroid gland. This causes mass effect and rightward deviation of the trachea. The salivary glands are normal in appearance. No cervical lymphadenopathy is seen. Skeletal structures: The skeletal structures are osteopenic. The calvarium appears intact. The cervical spine is maintained noting multilevel spondylosis. No lytic or blastic lesion is seen. Orbits: The bony orbits are intact. Orbital contents are normal as visualized noting bilateral ocular lens implants. Sinuses and mastoids: There is mild mucosal thickening and secretions within the right sphenoid sinus. Trace because of thickening seen within the maxillary antra. The mastoid air cells are well pneumatized. IMPRESSION: 1. There is no hemorrhage, mass effect, or evidence of acute territorial ischemia by CT criteria noting angiographic phase technique. 2. Unremarkable CT angiogram of the brain. 3. Unremarkable CT head from the neck. 4. There is a 6.5 cm mass of the left lobe of the thyroid gland. Follow-up with a nonemergent thyroid ultrasound is recommended for further assessment. CT head/brain wo con CLINICAL HISTORY: 75 years-old Male with Stroke Like Symptoms. Acute strokelike symptoms TECHNIQUE: Multiple axial CT images of the head were obtained without contrast. A dose lowering technique was utilized adhering to the principles of ALARA. COMPARISON: None. FINDINGS: No acute intracranial hemorrhage, midline shift, intracranial mass, hydrocephalus, territorial ischemia or abnormal extra-axial collection. Age- related involutional changes. The calvarium is intact. Tiny air-fluid level of the right sphenoid sinus. Mastoid air cells are clear. Unremarkable soft tissues. Prior bilateral lens replacement. IMPRESSION: No acute intracranial abnormality. Medications Administered Magnesium Sulfate/Dextrose (Magnesium Sulfate / D5w) 1 gm in 100 mls @ 100 mls/hr IV Q1H ARLYN Stop: 06/12/20 19:09 Last Admin: 06/12/20 18:34 Dose: 100 mls/hr Documented by: [id number] Infusion: 06/12/20 18:34 Dose: 0 mls/hr Documented by: [id number] Admin: 06/12/20 17:33 Dose: 100 mls/hr Documented by: [id number] Discontinued Medications Ioversol (Optiray 320 125ml) 118 ml IV ONCE ONE Stop: 06/12/20 16:28 Last Admin: 06/12/20 16:28 Dose: 118 ml Documented by: [id number] ECG Additional Comments: Normal sinus rhythm Normal ECG No comparison available. Code Status & VTE Plan Code Status SCDs Supervising Physician Co-Signing Physician Notes Pt seen and examined by me. Denies chest pain or SOB. Tolerating PO without issue. Pt denies memory of today prior to waking up in the ED and needing to urinate. He does remember nursing helping him to the bathroom. He remembers speaking with his via phone and that she told him he went out to shovel sno w and came back inside confused. He does not remember getting a CT scan or speaking with the telehealth doctor in the ED. He does not remember yesterday's events either. He does remember his own personal hx details like they used to live in [place] and he recalled recent vacations he has been on. He does not remember his dx. Per ED physician who spoke with , pt went outside around 130p to shovel and came back inside confused. He was able to walk and move around without issue. She called 911 for concern of CVA. ED states she denied seeing evidence of fall outside. Agree with HPI/ROS as noted by FOREIGN SERVICE TEACHER See above for my exam in PE section Agree with plan as outlined above Dx with telehealth as likely TGA, does seem to be remembering some items from later in his ED visit now CT head, CTA h/n chest neg for acute CBC, PRP WNL MRI/MRA pending Thyroid nodule noted with TSH and imaging pending PG Care Time/CCT Total # of Minutes Spent Total Time Spent with Patient: Total time spent is greater than 50% in coordination of care (as documented) at patient's floor/unit and/or counseling patient: Coding Level of Care Code 85474 OBS Care - Level 3 Diagnoses Amnesia memory loss R41.3 Hyperlipidemia E78.5 Hyperlipidemia type: unspecified T2DM (type 2 diabetes mellitus) E11.9 Diabetes mellitus complication status: without complication Diabetes mellitus nursing home insulin use: without moth exterminator use Benign essential hypertension I10 Thyroid nodule greater than or equal to 1 cm in diameter incidentally noted on imaging study E04.1 (1) T2DM (type 2 diabetes mellitus) Diabetes mellitus complication status: without complication Diabetes mellitus nursing home insulin use: without moth exterminator use Qualified Code(s): E11.9 - Type 2 diabetes mellitus without complications (2) Hyperlipidemia Hyperlipidemia type: unspecified Qualified Code(s): E78.5 - Hyperlipidemia, unspecified
[2020-06-12] MEDS ORDERED: ASPIRIN 81 MG CHEW PO ONE (19:32)
[2020-06-12] MEDS ORDERED: PHARMACIST DISCHARGE MED REC CONSULT PRN (19:32)
[2020-06-12] MEDS ORDERED: LORazepam 0.5 MG TAB PO STA (20:28)
[2020-06-12] MEDS ORDERED: ONDANSETRON INJ 2 MG/ML 2 ML VIAL IV PRN (20:29)
[2020-06-12] MEDS: PATIENT'S WEIGHT NEEDED SCH ×2 (21:34→23:27)
[2020-06-12 21:52] LABS: Appearance Urine Clear (Clear); Bilirubin Urine Negative (Negative); Blood Urine Negative (Negative); Color Urine Yellow; Glucose Urine UA Negative (Negative); Ketones Urine Trace (Negative); Leukocyte Esterase Urine Negative (Negative); Nitrite Urine Negative (Negative); Protein Urine Negative (Negative); Specific Gravity Urine > 1.045 (1.000-1.030); Urobilinogen Urine Negative (Negative)
[2020-06-12] MEDS ORDERED: GADOBUTROL 65ML VIAL IV ONE (22:05)
[2020-06-12 22:31] LABS: Amphetamines+Metham, Urine Neg (Neg); Barbiturates, Urine Neg (Neg); Benzodiazepine, Urine Neg (Neg); Cocaine, Urine Neg (Neg); MDMA (Ecstacy), Urine Neg (Neg); Methadone, Urine Neg (Neg); Opiate, Urine Neg (Neg); Phencyclidine, Urine Neg (Neg)
[2020-06-12] MEDS: ACETAMINOPHEN 325 MG TAB PO PRN (22:31)
[2020-06-13 06:54] LABS: Basophils # (auto) 0.01 K/uL (0-0.2); Basophils % (auto) 0.1 %; Eosinophils # (auto) 0.11 K/uL (0-0.5); Eosinophils % (auto) 1.1 %; Hematocrit (blood only) 37.1 % (42-52); Immature Granulocytes # (auto) 0.02 K/uL (0.00-0.02); Immature Granulocytes % (auto) 0.2 %; Lymphocytes # (auto) 2.12 K/uL (1.2-3.4); Lymphocytes % (auto) 20.6 %; Mean Corpuscular Hemoglobin 32.2 pg (25-34); Mean Corpuscular Volume 91.8 fL (80-100); Mean Platelet Volume 11.3 fL (7.4-10.4); Monocytes % (auto) 7.8 %; Neutrophils # (auto) 7.22 K/uL (1.4-6.5); Neutrophils % (auto) 70.2 %; Platelet Count 250 K/uL (130-400); RDW Coefficient of Variation 14.3 % (11.5-14.5); Red Blood Count 4.04 M/uL (4.7-6.1); White Blood Count 10.28 K/uL (4.8-10.8)
[2020-06-13 07:17] LABS: Creatinine Clr Calc Pharmacy 79.2 ml/min; Est GFR (African American) 93.4; Est GFR (Non-African American) 80.6; Magnesium 2.2 mg/dl (1.8-2.4); Potassium 3.8 mmol/L (3.5-5.1)
[2020-06-13 07:28] LABS: Thyroid Stimulating Hormone 0.76 uIu/ml (0.300-4.500)
--- NOTE | 2020-06-13 07:39 | Magnetic Resonance Report ---
Brain MRI WITH AND WITHOUT CONTRAST HISTORY: amnesia / stroke alert TECHNIQUE: Multiplanar multisequence MRI of the brain was performed both before and after the intrave nous administration of contrast. COMPARISON STUDY: Head CT 06/12/2020. FINDINGS: There are no areas of restricted diffusion to suggest acute infarction. The midline structu res are intact. Mild mucosal thickening within the sphenoid sinuses. The mastoid air cells are clear. The ventricles and sulci are within normal limits for age. There is no mass, hematoma, midline shift . The major vascular flow-voids at the skull base are well maintained. Postcontrast sequences show no areas of abnormal enhancement. Bilateral lens replacement. IMPRESSION: No acute intracranial abnormality. ACT 112: Negative or not required by law. Electronically signed by: Isreal Cerna M.D. 06/13/2020 7:38 AM
--- NOTE | 2020-06-13 08:27 | Neurology Consultation ---
Date of Consultation June 13, 2020 Assessment & Plan (1) Amnesia, global, transient: Transient global amnesia. Patient is neurologically intact this morning and has unremarkable neuro imaging. Prognosis for recovery should be good. The etiology of transient global amnesia is not entirely clear although in general, the condition is felt to be due to transient dysfunction in the hippocampi and associated memory structures in the brain. Yet, the underlying pathophysiology is not really understood. TGA is not felt to be due to ischemia, seizure, or migrainous phenomena. The risk of recurrence is typically very low. Transient global amnesia is not felt to increase the risk for dementia going forward. It is reasonable, however, to complete a TIA/stroke work-up. Echocardiography to be completed later this morning. Patient does have some stroke risk factors including hypertension, hyperlipidemia, and type 2 diabetes mellitus. These conditions will need ongoing management with his PCP. There is no clear indication for chronic antiplatelet therapy in the context of TGA. He does complain of an associated low-grade posterior headache and neck pain. It is unknown if you may have slipped and fell while shoveling ice in his driveway although there are no obvious signs of external trauma or injury on his imaging. Headache does accompany transient global amnesia in many individuals which I suspect is the case in this patient. Patient may use Tylenol on an as- needed basis to address his headache for the time being. I do expect his headache to resolve on its own, however. I have no further immediate recommendations for this patient. Please contact me with any questions regarding this neurological assessment. History of Present Illness Reason for Consultation: Transient amnesia Requesting Physician: Balwinder Gaytan MD Attending Physician: Frank Avendaño MD History of Present Illness The patient is a 75-year-old male who presented to the emergency department yesterday afternoon for further evaluation of confusion. He had been outside shoveling ice on the driveway and upon coming back inside the home was behaving in a confused fashion, asking repetitive questions. Emergency medical personnel were summoned and brought the patient to the emergency department where he was complaining of headache as well as some associated neck and back pain. He continued to appear confused and was asking repetitive questions during his ev aluation in the emergency department. He could not recall being at home earlier in the day or what he had been doing. He had also had an episode of vomiting prior to arrival. He did not have any focal neurological deficits during his initial examination although he continued to ask repetitive questions as to why he was in the emergency department. His case had also been discussed with the telestroke neurologist at [facility]. Initial imaging including CT of the head and CT angiography of the head and neck were completed and were generally unremarkable, no evidence of hemorrhage or acute process. Angiography was unremarkable as well although he was noted to have a 6.5 cm mass involving the left thyroid gland with recommendations for a nonemergent thyroid ultrasound to be completed as follow-up. The patient's blood pressure was only modestly elevated at the time of his initial assessment, 160/78. Screening lab evaluation including a CBC, comprehensive metabolic panel, vitamin B12 level, TSH, and urine tox brain were all unremarkable. The patient completed a follow- up brain MRI yesterday that was negative for acute or subacute stroke or other significant process. No evidence of parenchymal disease. No abnormal postcontrast enhancement. I reviewed the images as well as the radiologist's interpretation of this test. An electrocardiogram reveals a normal sinus rhythm, 68 bpm. Past medical history notable for hypertension, hyperlipidemia, and type 2 diabetes mellitus. Allergies Allergy/AdvReac Type Severity Reaction Status Date / Time No Known Allergies Allergy Verified 06/12/20 16:26 Home Medications Medication Instructions Recorded Confirmed Type ibuprofen 200 mg capsule 200 mg PO DIRECTED PRN cap 02/01/19 06/12/20 History metformin 500 mg tablet 500 mg PO BID #180 tab 09/07/19 06/12/20 Rx lisinopril 10 mg tablet 10 mg PO DAILY #90 tab 05/29/20 06/12/20 Rx Patient History Medical History Benign essential hypertension GERD (gastroesophageal reflux disease) MILD, DIET CONTROLLED History of basal cell carcinoma (BCC) of skin (11/2019) Hyperlipidemia Nausea and vomiting after administration of anesthetic agent T2DM (type 2 diabetes mellitus) Surgical History History of cholecystectomy (1993) History of right cataract surgery History of tonsillectomy History of total knee replacement (05/2012) LEFT S/P cataract extraction (09/26/18) L eye S/P left knee arthroscopy (2018) Family History Aunt Ovarian cancer Breast cancer Mother Hypertension Denies family history of Prostate cancer Myocardial infarction Colorectal cancer Social History Smoking Status: Never smoker Cigarettes Per Day: QUIT 30 YEARS AGO, HX OF USE X30 YEARS; Second Hand Exposure: No; Hx Alcohol Use: No Hx Substance Use: No Preferred Language: [place] Citizen Communication Ability: Effective Contact Lens Technician Required: No Beliefs That Will Affect Care: None Current Living Situation: Spouse current occupational status: retired Feels Safe at Home: Yes caffeine: Yes during the past year weight has: remained stable Dental Care, Regularly: Yes Physical Activity Frequency: Daily Seatbelt Use: other Sunscreen Use: No Assistive Devices: None Review of Systems Constitutional: no fever and no chills Eyes: no blind spots and no diplopia Ear, Nose, Mouth, Throat: no ear pain and no hearing loss Respiratory: no cough and no dyspnea Cardiovascular: no chest pain and no palpitations Gastrointestinal: no nausea and no vomiting Genitourinary: no dysuria Musculoskeletal: + neck pain Integumentary: no rash and no lesions Neurologic: as per Subjective / HPI, + headache(s) and + memory loss Psychiatric: no depression and no anxiety Hematologic / Lymphatic: no easy bleeding and no easy bruising Exam (Neuro) Constitutional: well developed and well nourished; no acute distress Eyes: normal visual christianson by confrontation, PERRL, normal accommodation and EOM intact bilaterally; no fundoscopic abnormality, no nystagmus and no papilledema Cardiovascular: Vessels: normal carotid upstroke; no carotid bruit Neurologic: Oriented to:: Person, Place and Time Memory: Short Term Intact and Remote Intact Attention: Span Intact and Concentration Intact Language: Naming Objects and Repeating Phrases Speech Fluency: negative Dysarthria Speech Aphasia: negative Aphasia Fund of Knowledge: Current Events, Past History and Vocabulary Cranial Nerves: Normal II (Visual christianson full to confrontation, visual acuity normal), III, IV, (Pupils equal round reactive to light and accommodation, eye movements normal), V (Facial sensation intact), VII (There is no facial droop or weakness), VIII (Hearing intact), IX, X (Palate elevates to midline), XI (Shoulder shrug intact) and XII (Tongue protrudes to midline) Motor Strength: Normal Lower Extremities and Normal Upper Extremities; negative Pronator Drift Motor Tone: Normal Lower Extremities and Normal Upper Extremities Muscle Bulk/Involuntary Movements: No Involuntary Movements; negative Muscle Atrophy Sensation: Light Touch Intact, Pain/Temperature Intact, Vibration Intact and Proprioception Intact Coordination: Normal; negative Limited Balance, Dysdiadochokinesia, Finger-Nose Abnormal and Heel-Diana Abnormal Deep Tendon Reflexes: Rt Triceps: 2+, Lt Triceps: 2+, Rt Biceps: 2+, Lt Biceps: 2+, Rt Brachioradialis: 2+, Lt Brachioradialis: 2+, Rt Patellar: 2+, Lt Patellar: 2+, Rt Ankle: 2+ and Lt Ankle: 2+ Special Tests: negative Babinski Present Gait: Normal Station and Gait Results & Data ([facility]) Vital Signs (Past 12 Hours) Vital Signs Temp Pulse Resp BP Pulse Ox 06/13/20 07:28 36.9 C 52 L 18 93/42 L 95 06/12/20 22:32 36.7 C 61 18 159/74 H 97 Laboratory Results WBC 10.28, hemoglobin 13.0, hematocrit 37.1, platelet count 250, sodium 140, potassium 3.8, BUN 14, creatinine 0.93, glucose 114, hemoglobin A1c 6.3, calcium 9.0, magnesium 2.2, triglycerides 170, cholesterol 199, LDL 131, VLDL 34, HDL 34, vitamin B12 level 276, TSH 0.760, urine toxicology negative Diagnostic Findings CT of the head, CT angiography of the head and neck, and brain MRI are as described in the history of present illness. An electrocardiogram completed yesterday revealed a normal sinus rhythm, 68 bpm. PG Care Time/CCT Total # of Minutes Spent Total Time Spent with Patient: Total time spent is greater than 50% in coordination of care (as documented) at patient's floor/unit and/or counseling patient: Coding Level of Care Code 65951 Initial Inpt Care Lvl 3 Diagnoses Amnesia, global, transient G45.4
[2020-06-13] MEDS ORDERED: lisinopril 10 MG TAB PO SCH (09:00)
[2020-06-13] MEDS ORDERED: ENOXAPARIN INJ 30 MG/0.3 ML SYR SQ SCH (09:00)
--- NOTE | 2020-06-13 10:23 | Electrocardiogram Report ---
Test Reason : Blood Pressure : / mmHG Vent. Rate : 068 BPM Atrial Rate : 068 BPM P-R Int : 208 ms QRS Dur : 100 ms QT Int : 422 ms P-R-T Axes : 007 -11 040 degrees QTc Int : 448 ms Normal sinus rhythm Normal ECG No previous ECGs available Confirmed by Juan Alberto Castanon ([id number]) on 06/13/2020 10:23:10 AM Referred By: REFERRED SELF Confirmed By:Jonathan Castanon
--- NOTE | 2020-06-13 10:24 | Med Student Discharge Summary ---
Date of Service June 13, 2020 Admission HPI Per Admitting Provider 75 YOM with significant medical history of HTN, DM II, HLD (patient declined statin therapy), neck pain/back pain. Was brought to the emergency room today via EMS after called 911 secondary to patient confusion and repetitive speech after he went outside to shovel snow. The patient arrived to the EMD and underwent stroke alert protocols. The patient was last known well at 1330 today per ER report and was deemed not a tPA candidate secondary to feeling that this is transient amnesia. The patient does not recall any events from today or awakening this morning. The last person that he remembers seeing today was his nurse who just left the room when I entered. He is unaware of where he is and how he got here. The amnesia is associated with a frontal headache that is right in the center of his forehead and is mild at 2-3/10. He denies any association with other pain, nausea, vomiting, or vertiginous symptoms. Reportedly had one episode of vomitus in the ambulance. Patient underwent CT/CTA of head and neck while in the EMD, NIHSS 2 on my evaluation. MRI ordered. Patient will be admitted for observation for 24 hours, telemetry for dysrhythmia monitoring and frequent neurological assessment. Admission Exam (Per Admitting) Constitutional PHYSICAL EXAM: General: awake, alert, no apparent distress Head: Normocephalic, atraumatic ENT: PERRL, EOMI, no pharyngeal exudate, mucous membranes moist Neuro: AAO x 1 (person), NIHSS 2; speech clear and appropriate, neck midline non-tender; strength intact bilaterally 5/5, sensation intact and equal all extremities, no pronator drift, no ataxia, no dysarthria difficulty with concrete thought processes. Writing normal as well as reading. No recolection of the past week or day, no nystagmus. Chest: equal rise and fall of the chest, no accessory muscle use, no heaves or thirlls, Clear to auscultation, on room air, Cardiac: Regular rate and rhythm, telelmetry reviewed, skin warm dry, cap refill <3 seconds, peripheral pusles +2 no JVD, no murmur, no JVD, no edema GI: NABS x 4 quadrants, soft, nontender to palpation, no rebound, guarding or tenderness : Spontaneously voiding, no pain, no CVA tenderness, Extremities: Normal inspection, no peripheral edema or erythema, calfs nontender to palpation Psych: Normal mood and affect Skin: no rash or erythema Discharge Data Consultations 06/12/20 17:37 ED Decision to Admit Stat 06/12/20 19:32 Consult Case Management - Discharge Planning Routine Consult Neurology Routine Hospital Course (1) Amnesia, global, transient: Mr. Whitaker is a 75-year-old male with a pmhx of HTN, HLD, DM II, and infrequent LINN/migraines who presented on 06/12 with confusion and was admitted for altered mental status. # AMS - Confusion, repetitive speech, and amnesia after possible fall - Stroke workup: Head CT, head MRI, and CTA of head and neck were all negative - Echo showed EF 55-60% with no signs of embolic source - Labs were wnml and urine tox screen was negative - Pt. returned back to baseline without intervention - Most likely 2/2 to concussion vs. transient global amnesia - Neurology consulted, suspected TGA and did not recommend any anti-coagulation - Monitor for future occurrences of AMS # HTN/Hyperlipidemia - Cholesterol was at upper limit of normal - ASCVD calculated at 59.8% (high risk) - Atorvastatin 20 mg PO hs initiated. Plan to up-titrate to high intensity dosing as outpatient #Thyroid nodule - 6.5 cm mass of the left lobe of the thyroid gland found on CTA - TSH nml - Follow-up with U/S of thyroid as outpatient Discharge Plan Discharge Items Patient Disposition: Home - Self-Care Reason For Visit: CONFUSION, BACK PAIN, STROKE ALERT Discharge Diagnosis: Transient Global Amnesia Condition on Discharge: Good Activity: Per Instructions section Non-emergency contact: Primary Care Provider and Neurologist Call non-emergency contact if: your symptoms worsen Follow-up/Referrals: Celina Ramos DO [Primary Care Provider] - 06/20/20 10:20 am (You have an appt with Je on 06/20 @ 1020am. Please arrive 15 minutes prior to your appt. It is important that you keep this appt. If for any reason this appt does not fit into your schedule, please call [phone] ) Diet: Regular Addtl Attending Provider Instructions: You were admitted to [facility] on 06/12/2020 because you developed symptoms of confusion and repetitive speech after shoveling snow. When you arrived at the Emergency Room, you told us that you do not remember anything about the day of admission. Given your history of high blood pressure, diabetes and high cholesterol, in addition to the above-mentioned symptoms, we were concerned that you had a stroke. Therefore, we ordered several imaging studies in order to rule out the possibility of a stroke. Thankfully, all of the head, neck and heart imaging studies did not show signs of stroke. Neurology (brain specialist) was consulted and agree that your symptoms are not due to a stroke. As of 06/13, you did not appear confused and your speech was normal. You most likely experienced a temporary memory issue known as transient global amnesia. You will be discharged on 06/13 in good, stable condition. You should continue to take all of your regular home medications, and you should also start taking Atorvastatin, which lowers cholesterol and will decrease your chance of stroke. Additionally, you may have fallen yesterday and experienced a concussion, based on your headache and pain in the back of your head. You should follow up with your PCP about your headache and possible concussion. Lastly, some of the imaging studies showed a mass in the left side of your thyroid gland (in your neck). Most of these masses are completely benign, but we recommend that you follow-up with your PCP about further imaging and work-up if this mass, to be sure that it is not cancerous. We hope you continue to feel better, and it was a pleasure to treat you for your condition. Pending Studies at Discharge: No Stand-Alone Forms: My [facility], Smoking Cessation Medications and DC Order Prescriptions: New atorvastatin 20 mg tablet 20 mg PO HS Qty: 30 RF: 2 Continued metformin 500 mg tablet 500 mg PO BID Qty: 180 RF: 1 lisinopril 10 mg tablet 10 mg PO DAILY Qty: 90 RF: 1 ibuprofen 200 mg capsule 200 mg PO DIRECTED PRN (Reason: Pain) RF: 0 Discharge Orders: Discharge Order (Routine); Ordered 06/13/20 Ordered By: Aren Dickinson Admission Data Admit Date/Time: 06/12/20 18:21 Attending Provider: Frank Avendaño Admit Provider: Jackelyn Rodriguez Primary Care Provider: Celina Ramos Other Providers: Jackelyn Rodriguez Brian A. Other Interventions: Discharge Summary Assessment (RN) Last Done: 06/13/20 12:32 Supervising Attestation Attending attestation Pt seen and examined in concert with Std. Dr. Betancourt, Dr. Dickinson. In agreement with the documented findings as noted in the resident documentation with any exceptions or additions as noted here. Memory symptoms adequate following engaging with EMS. Posterior scalp pain which is reproducible with pressure without headache & photophonophobia, some neck pain. On examination, S1/S2 nl RRR no MCG. CTAB. Abd NT/ND BS+ve. CNII-XII grossly intact. TTP to the posterior occiput and along the traps and paraspinals. Transient global amnesia - ?traumatic - neurology consultation - echo, MRI, CT and CTA as noted without overt causative pathology - discharge to follow up with primary care Thyroid nodule - will need further evaluation (US) with follow up as outpatient HLD - initiated low dose atorvastatin Else see student/resident documentation as noted. Total attending time spent with this patient's case on day of discharge: 35 minutes. Resident Activity Tracking Resident Involvement: Resident Care Provided Care Provided: Adult Hospital Medicine
--- NOTE | 2020-06-13 10:39 | XCELERA ---
[id number]
[2020-06-13] MEDS: ACETAMINOPHEN 325 MG TAB PO PRN (11:17)
== END 2020-06-13 14:01 | disposition home or self-care (01) ==
LOC: ED 16:12 → 2N 16:12 → SUATTDRO 18:21 → 2N 19:07